=== PATIENT | female | born 2005 | race Caucasian/White ===

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

== ENCOUNTER 2024-11-17 15:15 | Observation (INO) | payer MEDICAID ==
[~2024-11-17] VITALS: Ht 160 cm; Wt 72.6 kg
--- NOTE | 2024-11-17 16:09 | DVH ---
BIOPHYSICAL PROFILE HISTORY: decreased movement TECHNIQUE: Multiple transabdominal real-time grayscale sonographic images through the gravid uterus of the fetus with duplex Doppler color flow and M-mode spectral analysis FINDINGS: BIOPHYSICAL PROFILE: breathing score: 2 movement score: 2 tone score: 2 Quantitative PORSCHE score: 2 (PORSCHE: 18.3 Cm.) Total score: 8/8 The cervix not measured Single live fetus in cephalic presentation. heart rate 136 beats per minute. Anterior Grade 2 placenta without previa or abruption Single live fetus at 34 weeks 6 days Biophysical profile score 8/8 corresponding to an JUICE of 12/23/2024 Estimated weight not calculated g IMPRESSION: 1. Biophysical profile score: 8/8 HS:Y
--- NOTE | 2024-11-18 08:18 | DVHDS2 ---
Physician Discharge Progress N Final Diagnosis: dec movement 34wks Operations or Procedures: Operations or Procedures nst,sono Condition on Discharge: Good Disposition: Home Discharge Instructions: Diet: Regular Activity: Light activity Medications: na Follow Up Care: Specialist: 2d Discharge Statement: "Patient was advised to return to the ER or call 911 if any headaches, dizziness, shortness of breath, chest pain, abdominal pain, bleeding, fevers, or worsening of medical condition. Patient was counseled about treatment plan, medications, possible side effects, patientverbalized understanding. All questions were answered to the best of my ability. This discharge took greater then 30 minutes in planning, reviewing documentation, counseling the patient, and discussing with other team members." Visit Coding OBGYN Date of Service: Nov 17, 2024 Billing Provider: KORIN NUNES DO POLE SANDER OPERATOR Common Visit Codes: 87973-CQKMZFL OBS CARE (HIGH) POLE SANDER OPERATOR Procedure Codes: 93891-17- NON-STRESS TEST KORIN NUNES DO Nov 18, 2024 08:18
== END 2024-11-17 16:36 | disposition home or self-care (01) ==
LOC: LDRP 15:15 → UNDOADMOB 15:15 → LDRP 15:19
PROVIDERS: ADMIT Obstetrics & Gynecology; ATTEND Obstetrics & Gynecology
DX: O36.8130 Decreased fetal movements, third trimester, not applicable or unspecified (principal); Z3A.34 34 weeks gestation of pregnancy; Z79.899 Other long term (current) drug therapy
CPT/HCPCS: 59025; 76819; 81002; 94760; G0378